=== PATIENT | female | born 1980 | race Caucasian/White ===

== ENCOUNTER → 2017-01-16 | Outpatient (CLI) | payer BC ==
[~2017-01-16] MED LIST: ACET325T96 PO; PRENTAB26 PO; PSEU30TA20 PO
[2017-01-16 12:51] LABS: BASO % 0.1 %; BASO ABS # 0.01 K/uL (0-0.2); COMPLETE YES; EOS % 2.1 %; HEMATOCRIT 36.5 % (37-47); IG% 0.2 %; LYMPH % 19.5 %; MEAN CELL VOLUME 84.7 fL (80-100); MEAN CORPUSCULAR HEMOGLOBIN 28.3 pg (25-34); MEAN CORPUSCULAR HGB CONC 33.4 g/dl (32-36); MEAN PLATELET VOLUME 11.2 fL (7.4-10.4); MONO % 7.3 %; NEUT % 70.8 %; PLATELET COUNT 291 K/uL (130-400); RED BLOOD COUNT 4.31 M/uL (4.2-5.4); WHITE BLOOD COUNT 9.23 K/uL (4.8-10.8)
[2017-01-16 13:23] LABS: GTGD 50 Grams
== END | disposition home or self-care (01) ==
LOC: C.LAB 09:32
PROVIDERS: ATTEND Obstetrics & Gynecology
DX: Z34.82 Encounter for supervision of other normal pregnancy, second trimester (principal); Z3A.16 16 weeks gestation of pregnancy

== ENCOUNTER → 2017-04-25 | Day surgery (SDC) | payer BC ==
[~2017-04-25] VITALS: Ht 165.1 cm; Wt 83.5 kg
[2017-04-25 09:29] VITALS: BP 109/68; PULSE 98; TEMP 36.8; O2SAT 98; Ht 165.1 cm; Wt 83.5 kg
[2017-04-25 09:36] VITALS: BP 109/68; PULSE 98; TEMP 36.8; O2SAT 97
--- NOTE | 2017-04-28 11:19 | EDITING REQUIRED CODING QUERY ---
DIAGNOSIS NEEDED To promote full compliance with coding requirements relating to patient care, physician participation is requested in all cases of supervisor education uncertainty. Please assist us with the question(s) below: Coding Question: The patient received a rhogam injection on 04/24/17 in labor and delivery as noted within the record. Please document the diagnosis that is being addressed by the medication/treatment. Provider Response: DIAGNOSIS: RH NEGATIVE INTRAUTERINE 29 WEEKS WEEKS GESTATION: Thank you for your assistance, Carla Nguyen - Co Founder And Cto
== END | disposition home or self-care (01) ==
LOC: C.MTU 09:17
PROVIDERS: ATTEND Obstetrics & Gynecology
DX: O36.0931 Maternal care for other rhesus isoimmunization, third trimester, fetus 1 (principal); Z3A.39 39 weeks gestation of pregnancy

== ENCOUNTER → 2017-06-03 | Outpatient (CLI) | payer BC | END | disposition home or self-care (01) | LOC: C.LABSPEC 14:03 | PROVIDERS: ATTEND Obstetrics & Gynecology | DX: Z34.83 Encounter for supervision of other normal pregnancy, third trimester (principal) ==

== ENCOUNTER 2017-06-27 01:44 | Inpatient (IN) | payer BC ==
[~2017-06-27] VITALS: Ht 165.1 cm; Wt 87.0 kg
[2017-06-27] MEDS ORDERED: NURSING VERBAL MED ORDER ONE ×2 (02:15→03:30)
[2017-06-27] MEDS ORDERED: PENICILLIN G POTASSIUM IV 6 MU in DEXTROSE 5% 250ML IV STA (02:19)
[2017-06-27 02:39] LABS: HEMATOCRIT 31.3 % (37-47); MEAN CELL VOLUME 80.7 fL (80-100); MEAN CORPUSCULAR HGB CONC 32.3 g/dl (32-36); MEAN PLATELET VOLUME 10.5 fL (7.4-10.4); PLATELET COUNT 274 K/uL (130-400); RED BLOOD COUNT 3.88 M/uL (4.2-5.4); WHITE BLOOD COUNT 10.42 K/uL (4.8-10.8)
[2017-06-27 03:28] VITALS: Ht 165.1 cm; Wt 87.0 kg
[2017-06-27] MEDS ORDERED: PENICILLIN G POTASSIUM IV 3 MU in DEXTROSE 5% 100ML IV PRN (03:45)
[2017-06-27] MEDS ORDERED: LACTATED RINGER'S 1000ML 1,000 ML IV SCH (03:45)
[2017-06-27] MEDS ORDERED: OXYTOCIN 30 UNITS/500ML NSS IV ONE (06:30)
[2017-06-27] MEDS ORDERED: HYDROCORTISONE ACETATE 25 MG SUPP PR PRN (07:15)
[2017-06-27] MEDS ORDERED: BENZOCAINE 20% AER SPR 82.5 GM CAN EXT PRN (07:15)
[2017-06-27] MEDS ORDERED: ACETAMINOPHEN 325 MG TAB PO PRN (07:15)
[2017-06-27] MEDS ORDERED: ACETAMINOPHEN/CODEINE 300/30MG TAB PO PRN ×2 (07:15)
[2017-06-27] MEDS ORDERED: DIPHTHERIA/TETANUS/PERTUSSIS 0.5 ML SYR/VIAL IM. ONE (07:15)
[2017-06-27] MEDS ORDERED: OXYTOCIN 30 UNITS/500ML NSS IV PRN (07:15)
[2017-06-27] MEDS ORDERED: LANOLIN OINT EXT PRN ×2 (07:15)
[2017-06-27] MEDS ORDERED: SUPERCREAM 0.870 % 15GM JAR EXT PRN (07:15)
[2017-06-27] MEDS ORDERED: OXYCODONE/ACETAMINOPHEN 5-325 TAB PO PRN (07:15)
--- NOTE | 2017-06-27 07:35 | DELIVERY SUMMARY ---
DATE OF OPERATION: 06/27/2017 She is 37-year-old 7, para 5, she has had 2 spontaneous ABs. Blood type is O negative. She is rubella immune. Vaginal beta strep was screen positive. Her due date is 06/30/2017. She was admitted early in the morning of the day of admission in active labor, at the time she was 4+ cm. She was given 6 million units of penicillin, she continued to labor on her own with no pain medication, no stimulation. She was about 8-9 cm. Cervix paper thin. We started the second dose of penicillin little early. Eventually she started breathing and pushing with her contractions. At this point, membranes were ruptured surgically and with about 3 contractions, she pushed out a live male infant via direct occiput anterior position over an intact perineum. Infant was suctioned through the mouth and the nose. Cord was clamped after the infant had been placed on the mother's abdomen and the cord had stopped pulsating, the father then cut the cord. Cord blood was taken. With IV Pitocin running, the placenta was removed intact. Inspection of the perineum revealed a first degree laceration. This was repaired anatomically. The vaginal mucosa was repaired out down to beyond the hymenal ring with a running 2-0 Vicryl. A deep suture of 2-0 Vicryl was used to approximate the bulbocavernosus muscles, 2 deep sutures to approximate the perineal body and a running subcuticular suture was used to approximate the perineal skin edges. Following this, vaginal exam including rectovaginal examination revealed no hematoma formation or sponges in the vagina. Estimated blood loss was 200 mL. Apgars in my own estimation more about 8 and 9 respectively. I attest to the content of the Intraoperative Record and any orders documented therein. Any exception s are noted below.
[2017-06-27 09:30] VITALS: BP 135/82; PULSE 94; TEMP 37; O2SAT 98
[2017-06-27] MEDS: IBUPROFEN 600 MG TAB PO PRN ×3 (09:40→19:34)
[2017-06-27] MEDS: FERROUS SULFATE 325 MG TAB PO SCH (10:00)
[2017-06-27] MEDS: DOCUSATE SODIUM 100 MG CAP PO SCH ×2 (10:00→20:53)
[2017-06-27] MEDS: PRENATAL VITAMIN TAB PO SCH (10:00)
[2017-06-27 12:00] VITALS: BP 120/75; PULSE 78; TEMP 36.6
[2017-06-27 16:30] VITALS: BP 127/85; PULSE 82; TEMP 36.8
[2017-06-27 20:40] VITALS: BP 107/55; PULSE 91; TEMP 36.4; O2SAT 98
[2017-06-28 00:20] VITALS: BP 119/79; PULSE 92; TEMP 36.8; O2SAT 97
[2017-06-28 04:05] VITALS: BP 116/65; PULSE 79; TEMP 36.7; O2SAT 98
[2017-06-28 08:10] VITALS: BP 117/87; PULSE 84; TEMP 36.8; O2SAT 98
[2017-06-28 08:10] LABS: HEMATOCRIT 31.1 % (37-47)
[2017-06-28] MEDS: FERROUS SULFATE 325 MG TAB PO SCH (08:23)
[2017-06-28] MEDS: DOCUSATE SODIUM 100 MG CAP PO SCH ×2 (08:23→20:18)
[2017-06-28] MEDS: PRENATAL VITAMIN TAB PO SCH (08:24)
[2017-06-28] MEDS: IBUPROFEN 600 MG TAB PO PRN ×2 (08:25→20:19)
--- NOTE | 2017-06-28 08:40 | Progress Note ---
Subjective Jun 28, 2017. Subjective conversation w/ patient Ambulation: ambulating normally Voiding: no voiding problems Passing Gas: Yes Diet Tolerance: Regular Diet Lochia: Small Feeding Type: Breast Feeding Review of Systems Constitutional: + fever Objective Vital Signs Date Time Temp Pulse Resp B/P (MAP) Pulse Ox O2 Delivery O2 Flow Rate FiO2 06/28/17 04:05 36.7 79 16 116/65 (82) 98 Room Air 06/28/17 00:20 Room Air 06/28/17 00:20 36.8 92 18 119/79 (92) 97 Room Air 06/27/17 20:40 36.4 91 18 107/55 (72) 98 Room Air 06/27/17 16:30 36.8 82 18 127/85 (99) Room Air 06/27/17 16:30 Room Air 06/27/17 12:00 Room Air 06/27/17 12:00 36.6 78 18 120/75 (90) Room Air 06/27/17 09:30 98 Room Air 06/27/17 09:30 37.0 94 16 135/82 (99) 98 Room Air Physical Exam General Appearance: WELL-APPEARING Respiratory/Chest: lungs clear Fundus: Firm, Non-Tender Extremities: no pedal edema, no calf tenderness Laboratory Results Last 24 Hours Test 06/28/17 07:56 Hemoglobin 9.8 g/dL Hematocrit 31.1 % Assessment and Plan Problem List Medical Problems: (1) Miscarriage Status: Acute (2) Vaginal bleeding Status: Acute (3) Vasovagal episode Status: Acute Post- Day#: 1
[2017-06-28 15:25] VITALS: BP 131/84; TEMP 36.9; O2SAT 98
[2017-06-28] MEDS ORDERED: BISACODYL 5 MG TABEC PO SCH (20:00)
[2017-06-28 23:00] VITALS: BP 117/72; PULSE 76; TEMP 36.8; O2SAT 97
[2017-06-29] MEDS ORDERED: BISACODYL 10 MG SUPP PR PRN (07:00)
[2017-06-29 08:10] VITALS: BP 145/88; PULSE 81; TEMP 36.4; O2SAT 98
[2017-06-29] MEDS: DOCUSATE SODIUM 100 MG CAP PO SCH (08:24)
[2017-06-29] MEDS: FERROUS SULFATE 325 MG TAB PO SCH (08:24)
[2017-06-29] MEDS: PRENATAL VITAMIN TAB PO SCH (08:24)
[2017-06-29] MEDS: IBUPROFEN 600 MG TAB PO PRN (08:25)
--- NOTE | 2017-06-29 09:57 | Progress Note ---
Subjective Jun 29, 2017. Subjective conversation w/ patient Ambulation: ambulating normally Voiding: no voiding problems Passing Gas: Yes Diet Tolerance: Regular Diet Lochia: Small Feeding Type: Breast Feeding Review of Systems Constitutional: + fever Objective Vital Signs Date Time Temp Pulse Resp B/P (MAP) Pulse Ox O2 Delivery O2 Flow Rate FiO2 06/28/17 23:00 Room Air 06/28/17 23:00 36.8 76 18 117/72 (87) 97 Room Air 06/28/17 15:25 36.9 14 131/84 (100) 98 Room Air 06/28/17 15:00 Room Air Physical Exam General Appearance: WELL-APPEARING Abdomen: soft Fundus: Firm, Non-Tender Extremities: no pedal edema, no calf tenderness Assessment and Plan Problem List Medical Problems: (1) Miscarriage Status: Acute (2) Vaginal bleeding Status: Acute (3) Vasovagal episode Status: Acute Post- Day#: 2
--- NOTE | 2017-06-29 10:00 | Discharge Instructions ---
Discharge Instructions Date of Service Jun 29, 2017. Admission Reason for Admission: Check Labor Discharge Discharge Diagnosis / Problem: positive beta strep screen active labor Discharge Goals Goal(s): Routine recovery after delivery Activity Recommendations Activity Limitations: as noted below ACTIVITY RECOMMENDATIONS: * Gradual return to full activity over the next 2-3 weeks. * No lifting - nothing heavier than baby over the next 2-3 weeks. * Do not engage in vigorous exercise, sexual activity or sports until cleared by your physician. * Do not drive or operate any motorized equipment until cleared by your physician. * You may shower/bathe daily. DIET: Resume Previous Diet If Breast-feeding: * Increase caloric intake by 500 calories, eat 3 well balanced meals, 2 high protein snacks a day and drink 6-8 8oz. glasses of fluid per day. BREAST CARE: If you are not breast feeding: * Wear a supportive bra 24 hours a day for one to two weeks. * Avoid stimulating your breasts and nipples as much as possible during the first few weeks after delivery. * When taking a shower, have the warm water hit your back, not breasts. * When your breasts feel full, apply ice packs. Usually three to four times a day helps ease the discomfort. * Take a mild pain medication (Tylenol / Motrin) when you are uncomfortable. If breast feeding: * Use breast milk to lubricate nipples. Lansinoh cream may be used for sore nipples. You do not need to remove cream prior to breast feeding. If using a different brand of cream, check the label for directions regarding removal of cream prior to nursing. * Wear a supportive bra. * If having problems with breasts or breast feeding, call a mergers and acquisitions consultant or your health care provider. OVER THE COUNTER MEDICATION: * For discomfort or pain, you may use Acetaminophen (Tylenol), Ibuprofen (Advil ), or Naproxen (Aleve) following the package directions. * For constipation you may use Colace following the package directions. SPECIAL CARE INSTRUCTIONS: * Vaginal rest (no tampons, douching, intercourse) until after doctor 's visit. * control as discussed with doctor. * Verbalizes understanding of car seat law as reviewed with patient nursing. * Car Seat hand-out given and reviewed with patient by nursing. * Shaken baby information reviewed with patient by nursing. Call you doctor if: * Temperature greater than or equal to 100.4 degrees F or 38.0 degrees C. Take your temperature twice daily for a week. * Bleeding becomes heavier than the heaviest part of your period - saturating a sanitary pad within an hour. * Passing large clots. * Bleeding has a foul smelling odor. * Signs and symptoms of phlebitis: leg pain, warm, red or swollen area on leg. * "Baby Blues" lasting longer than two weeks. ++ If you have had a and incision has increased pain, redness, swelling, presence of any drainage, or if the incision starts to open up. If you have any questions or concerns, call your health care practitioner at [phone]. FOLLOW-UP VISIT: Please call the office at to schedule a 6 week examination. . Instructions / Follow-Up Instructions / Follow-Up ACTIVITY RECOMMENDATIONS: * Gradual return to full activity over the next 2-3 weeks. * No lifting - nothing heavier than baby over the next 2-3 weeks. * Do not engage in vigorous exercise, sexual activity or sports until cleared by your physician. * Do not drive or operate any motorized equipment until cleared by your physician. * You may shower/bathe daily. DIET: Resume Previous Diet If Breast-feeding: * Increase caloric intake by 500 calories, eat 3 well balanced meals, 2 high protein snacks a day and drink 6-8 8oz. glasses of fluid per day. BREAST CARE: If you are not breast feeding: * Wear a supportive bra 24 hours a day for one to two weeks. * Avoid stimulating your breasts and nipples as much as possible during the first few weeks after delivery. * When taking a shower, have the warm water hit your back, not breasts. * When your breasts feel full, apply ice packs. Usually three to four times a day helps ease the discomfort. * Take a mild pain medication (Tylenol / Motrin) when you are uncomfortable. If breast feeding: * Use breast milk to lubricate nipples. Lansinoh cream may be used for sore nipples. You do not need to remove cream prior to breast feeding. If using a different brand of cream, check the label for directions regarding removal of cream prior to nursing. * Wear a supportive bra. * If having problems with breasts or breast feeding, call a mergers and acquisitions consultant or your health care provider. OVER THE COUNTER MEDICATION: * For discomfort or pain, you may use Acetaminophen (Tylenol), Ibuprofen (Advil ), or Naproxen (Aleve) following the package directions. * For constipation you may use Colace following the package directions. SPECIAL CARE INSTRUCTIONS: * Vaginal rest (no tampons, douching, intercourse) until after doctor 's visit. * control as discussed with doctor. * Verbalizes understanding of car seat law as reviewed with patient nursing. * Car Seat hand-out given and reviewed with patient by nursing. * Shaken baby information reviewed with patient by nursing. Call you doctor if: * Temperature greater than or equal to 100.4 degrees F or 38.0 degrees C. Take your temperature twice daily for a week. * Bleeding becomes heavier than the heaviest part of your period - saturating a sanitary pad within an hour. * Passing large clots. * Bleeding has a foul smelling odor. * Signs and symptoms of phlebitis: leg pain, warm, red or swollen area on leg. * "Baby Blues" lasting longer than two weeks. ++ If you have had a and incision has increased pain, redness, swelling, presence of any drainage, or if the incision starts to open up. If you have any questions or concerns, call your health care practitioner at [phone]. FOLLOW-UP VISIT: Please call the office at to schedule a 6 week examination. Current Hospital Diet Patient's current hospital diet: Regular Diet Discharge Diet Recommended Diet: Regular Diet Pending Studies Studies pending at discharge: no Medical Emergencies . Who to Call and When: Medical Emergencies: If at any time you feel your situation is an emergency, please call 911 immediately. . Non-Emergent Contact Non-Emergency issues call your: [employer] Con[employer] Helper Call Non-Emergent contact if: temperature is above 100.5 . . "Provider Documentation" section prepared by Bharat Cuevas. . VTE Core Measure Inpt VTE Proph given/why not?: Treatment not indicated
[2017-06-29 11:15] VITALS: BP_DIAS 88; PULSE 81; TEMP 36.4
== END 2017-06-29 11:15 | disposition home or self-care (01) | DRG 775 ==
LOC: C.LD 01:44 → C.OPB 01:44 → C.LD 02:14 → C.MS4N 09:38 → C.OBG 06-28 11:57
PROVIDERS: ADMIT Obstetrics & Gynecology; ATTEND Obstetrics & Gynecology
PROC: 0HQ9XZZ Repair Perineum Skin, External Approach (ICD-10-PCS; principal; 2017-06-27)
PROC: 10E0XZZ Delivery of Products of Conception, External Approach (ICD-10-PCS; principal; 2017-06-27)
DX: O99.824 Streptococcus B carrier state complicating childbirth (principal); O70.0 First degree perineal laceration during delivery; Z37.0 Single live birth; Z3A.39 39 weeks gestation of pregnancy

== ENCOUNTER → 2017-08-18 | Outpatient (CLI) | payer BC | END | disposition home or self-care (01) | LOC: C.PAPS 14:28 | PROVIDERS: ATTEND Obstetrics & Gynecology | DX: Z39.2 Encounter for routine postpartum follow-up (principal) ==